=== PATIENT | female | born 1945 | race Caucasian/White ===

== ENCOUNTER → 2020-05-08 15:17 | Outpatient (CLI) | payer MEDICARE, SELFPAY ==
[2020-05-08] MEDS: COVID-19 VACC, Ad26(JANSSEN)/PF 0.5 ML IM (15:40)
== END ==
PROVIDERS: Visit Provider Internal Medicine
DX: Z23 Encounter for immunization (principal)
CPT/HCPCS: 0031A; 91303

== ENCOUNTER 2024-03-26 13:27 | Emergency (ER) | payer OTHER, SELFPAY ==
[2024-03-26] VITALS (22 sets, daily range): BP systolic 160–201; BP diastolic 74–100; PULSE 62–95; RESP 12–28; TEMP 36.7; O2SAT 93–99; BMI 23.8
--- NOTE | 2024-03-26 13:35 | EKG_ITS ---
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
--- NOTE | 2024-03-26 13:35 | DI.RAD.S_ITS ---
PROCEDURE: XR CHEST 1V INDICATIONS: chest pain TECHNIQUE: One view of the chest was acquired. COMPARISON: None. FINDINGS: Surgical changes and devices: None. Lungs and pleura: No dense consolidation or pleural effusions. Mediastinum: Normal heart size Bones and chest wall: Degenerative changes IMPRESSION: No acute radiographic abnormality on this single view study. Dictated by: Jake Alfonso M.D. on 03/26/2024 at 13:58 Approved by: Jake Alfonso M.D. on 03/26/2024 at 13:59
[2024-03-26 14:17] LABS: Add Manual Diff / Slide Review NO; Basophils Absolute Auto 100 /uL (0-100); Basophils Percent Auto 0.9 % (0-2); Eosinophils Absolute Auto 100 /uL (0-450); Eosinophils Percent Auto 1.4 % (2-4); Hematocrit 42.8 % (36-46); Hemoglobin 14.5 g/dL (12.0-16.0); Lymphocytes Absolute Auto 2200 /uL (1100-4500); Lymphocytes Percent Auto 27.7 % (25-40); Mean Corpuscular Hemoglobin 31.7 PG (26-34); Mean Corpuscular Volume 93.3 fL (80-100); Monocytes Absolute Auto 700 /uL (0-900); Monocytes Percent Auto 8.5 % (3-14); Neutrophils Absolute Auto 4900 /uL (1500-7000); Neutrophils Percent Auto 61.5 % (50-75); Platelet Count 190 X10^3/uL (150-400); Red Blood Cell Count 4.59 X10^6/uL (4.0-5.2); Red Cell Distribution Width 12.9 % (11.6-14.8)
[2024-03-26 14:26] LABS: Prothrombin Time 11.4 SECONDS (9.4-12.5)
[2024-03-26 14:29] LABS: PTT Partial Thromboplastin Tim 32 SECONDS (25.1-36.5)
[2024-03-26 14:30] LABS: Alanine Aminotransferase 38 IU/L (<35); Albumin 4.6 g/dL (3.5-5.0); Albumin Globulin Ratio 1.5 (1.0-2.8); Alkaline Phosphatase 72 U/L (38-126); Aspartate Aminotransferase 38 IU/L (14-36); BUN Creatinine Ratio 19.3 (6-22); Bilirubin Total 0.5 mg/dL (0.2-1.3); Blood Urea Nitrogen 17 mg/dL (7-17); Calcium 10.1 mg/dL (8.4-10.2); Carbon Dioxide 25 mmol/L (22-32); Chloride 105 mmol/L (98-107); Creatine Kinase 66 U/L (30-135); Estimated Glomerular Filt Rate > 60 mL/min (>60); Glucose 100 mg/dL (80-110); HEMOLYSIS < 15 (0-50); Lipase 60 U/L (23-300); Potassium 4.1 mmol/L (3.4-5.1); Sodium 138 mmol/L (137-145); Total Protein 7.6 g/dL (6.3-8.2)
[2024-03-26 14:42] LABS: NT-proBNP (BNP-Adult 18+) 338 pg/mL (<450); Troponin I < 0.012 ng/mL (0.01-0.034)
[2024-03-26 16:37] LABS: Troponin I 0.015 ng/mL (0.01-0.034)
[2024-03-26] MEDS: ASPIRIN 81 MG CHEW TAB 324 MG PO (17:07)
--- NOTE | 2024-03-26 18:26 | ED.CHESTPAIN ---
HPI - Chest Pain General Chief Complaint: Chest Pain Stated Complaint: chest pain Time Seen by Provider: 03/26/24 18:26 Source: patient Mode of arrival: Ambulatory Limitations: no limitations and physical limitation History of Present Illness HPI narrative: 79-year-old female has no history of known coronary artery disease, complains of left lower sternal area chest discomfort for the last 72 hours, intermittent chest discomfort for the last month, recent coughing, on direct palpation she believes that it feels a little worse when she pushes on it. No trauma or new activities recalled, besides recent cough possible injury. Denies fevers or chills. Denies shortness of breath. Has cardiac risk factors of hyperlipidemia on atorvastatin, hypertension for which she takes metoprolol, denies history of diabetes, nonsmoker, denies family history. She recalls having cardiac exercise stress test many years ago in [place], no recent cardiac stress testing. No history of blood clots to legs or lungs. She does not take blood thinner medications besides aspirin. Was given additional aspirin here. Related Data Home Medications Medication Instructions Recorded Confirmed atorvastatin PO 11/24/21 11/24/21 metoprolol succinate PO 11/24/21 11/24/21 Previous Rx's Medication Instructions Recorded benzonatate 150 mg capsule 150 mg PO TID PRN cough #30 caps 11/24/21 fluticasone propionate 50 1 spray intranasal BID allergies 11/24/21 mcg/actuation nasal #16 grams spray,suspension (Flonase Allergy Relief) loratadine 10 mg tablet (Claritin) 10 mg PO DAILY allergies #30 tabs 11/24/21 Allergies Allergy/AdvReac Type Severity Reaction Status Date / Time No Known Drug Allergies Allergy Unverified 11/24/21 15:30 Patient History Social History Smoking Status: Never smoker Smoking Status: Never smoker Alcohol type: wine Exam Narrative Exam Narrative: GENERAL: Well-developed patient, in mild distress. HEAD: Atraumatic. Normocephalic. EYES: Pupils equal round and reactive. Extraocular motions intact. No scleral icterus. No injection or drainage. ENT: Nose without bleeding, purulent drainage. Throat without erythema, tonsillar hypertrophy or exudate. Airway patent. NECK: Trachea midline. Non tender CARDIOVASCULAR: Regular rate and rhythm without murmurs, gallops, or rubs. RESPIRATORY: Clear to auscultation. Breath sounds equal bilaterally. No wheezes, rales, or rhonchi. Tenderness to the left lower sternal border without skin changes or bruising, seems to reproduce her discomfort symptoms. GASTROINTESTINAL: Abdomen soft, non-tender, nondistended. EXTREMITIES: No edema or joint tenderness. BACK: Nontender without deformity or crepitance. No flank tenderness. NEURO: AOx3. Motor functions grossly nonfocal SKIN: No rash or erythema of visible areas Initial Vital Signs Initial Vital Signs: Vital Signs Temperature 98.1 F 03/26/24 13:30 Pulse Rate 92 H 03/26/24 13:30 Respiratory Rate 18 03/26/24 13:30 Blood Pressure 198/100 H 03/26/24 13:30 Pulse Oximetry 97 03/26/24 13:30 Oxygen Delivery Method Room Air 03/26/24 13:30 Course Orders Ordered: Discontinued Medications Aspirin (Aspirin 81 Mg Chew Tab) 324 mg PO NOW ONE Stop: 03/26/24 13:36 Last Admin: 03/26/24 17:07 Dose: 324 mg Documented By: Metoprolol Tartrate (Metoprolol Ir 25 Mg Tablet) 25 mg PO NOW ONE Stop: 03/26/24 19:42 Last Admin: 03/26/24 20:09 Dose: 25 mg Documented By: Vital Signs Vital signs: Vital Signs - 8 hr 03/26/24 22:00 03/26/24 22:00 Pulse Rate 62 Blood Pressure 170/77 H Pulse Oximetry 96 MDM - Chest Pain Lab Data Attestation: I reviewed the patient's lab results. Lab results narrative: White blood cell count 8000, hemoglobin 14.5, platelets adequate. Basic metabolic panel unremarkable. Liver functions showed mild transaminitis otherwise normal. Lipase normal. Troponin negative x2 studies. 03/26/24 14:00 03/26/24 14:00 Labs: Lab Results 03/26/24 03/26/24 Range/Units 14:00 15:58 WBC 8.0 (4.5-11.0) X10^3/uL RBC 4.59 (4.0-5.2) X10^6/uL Hgb 14.5 (12.0-16.0) g/dL Hct 42.8 (36-46) % MCV 93.3 (80-100) fL MCH 31.7 (26-34) PG MCHC 34.0 (30-36) % RDW 12.9 (11.6-14.8) % Plt Count 190 (150-400) X10^3/uL Neut % (Auto) 61.5 (50-75) % Lymph % (Auto) 27.7 (25-40) % [place] % (Auto) 8.5 (3-14) % Eos % (Auto) 1.4 L (2-4) % Baso % (Auto) 0.9 (0-2) % Neut # (Auto) 4900 (9877-2337) /uL Lymph # (Auto) 2200 (3522-8916) /uL [place] # (Auto) 700 (0-900) /uL Eos # (Auto) 100 (0-450) /uL Baso # (Auto) 100 (0-100) /uL PT 11.4 (9.4-12.5) SECONDS INR 1.0 (0.9-1.3) APTT 32 (25.1-36.5) SECONDS Sodium 138 (137-145) mmol/L Potassium 4.1 (3.4-5.1) mmol/L Chloride 105 (98-107) mmol/L Carbon Dioxide 25 (22-32) mmol/L BUN 17 (7-17) mg/dL Creatinine 0.88 (0.52-1.04) mg/dL Estimated GFR > 60 (>60) mL/min BUN/Creatinine Ratio 19.3 (6-22) Glucose 100 (80-110) mg/dL Calcium 10.1 (8.4-10.2) mg/dL Magnesium 2.0 (1.6-2.3) mg/dL Total Bilirubin 0.5 (0.2-1.3) mg/dL AST 38 H (14-36) IU/L ALT 38 H (<35) IU/L Alkaline Phosphatase 72 (38-126) U/L Total Creatine Kinase 66 (30-135) U/L Troponin I < 0.012 0.015 (0.01-0.034) ng/mL NT-Pro-B Natriuret Pep 338 (<450) pg/mL Total Protein 7.6 (6.3-8.2) g/dL Albumin 4.6 (3.5-5.0) g/dL Globulin 3.0 (1.7-4.1) g/dL Albumin/Globulin Ratio 1.5 (1.0-2.8) Lipase 60 (23-300) U/L Imaging Data Chest x-ray: Radiologist's Impression: [address] [address] XRay Report Signed Patient: Marisabel Michele MR#: [id number] : 1945 Acct:[id number] Age/Sex: 79 / F Date of Service: 03/26/24 Loc: ED Accession Number: [id number] Procedure: XR chest 1V Ordering Provider: Janie Ascencio D.O. PROCEDURE: XR CHEST 1V INDICATIONS: chest pain TECHNIQUE: One view of the chest was acquired. COMPARISON: None. FINDINGS: Surgical changes and devices: None. Lungs and pleura: No dense consolidation or pleural effusions. Mediastinum: Normal heart size Bones and chest wall: Degenerative changes IMPRESSION: No acute radiographic abnormality on this single view study. Dictated by: Jake Alfonso M.D. on 03/26/2024 at 13:58 Approved by: Jake Alfonso M.D. on 03/26/2024 at 13:59 ECG Data Attestation: I personally reviewed and interpreted this ECG as follows: Interpretation: Normal sinus rhythm with rate of 83, no obvious ST segment elevation or depression changes. T-wave inversion noted in lead 3 but upright in contiguous other inferior leads. [place] 114, QRS 76, QTC 430. MDM Narrative Medical decision making narrative: 79-year-old female with left lower sternal border discomfort for the last month intermittent, more constant over the weekend for the last 72 hours, recent cough, some tenderness on examination left lower sternal border reproduces this discomfort and area of discomfort. Possible chest wall etiology. Screening EKG without obvious ischemic changes. Blood tests pending. Initial troponin negative, repeat interval troponin also negative. Chest x-ray unremarkable, see radiology report. History and physical most suggestive of chest wall etiology of her chest pain, advised [id number] analgesics for now. Further evaluation as outpatient for now. Patient expressed understanding of this plan. Discharged home. Follow up with PCP. Return precautions discussed Discharge Plan Departure Patient Disposition: Home Clinical Impression: Chest wall pain, Hypertension Activity Restrictions/Additional Instructions: Left anterior sternal border area chest discomfort, on palpation there is some reproducibility with discomfort, seems more consistent by exam and history to be chest wall in nature. However evaluation was done to look for underlying other causes of chest discomfort. EKG and serial blood tests were not suggestive of heart attack at this time. Chest x-ray did not show any acute process per Radiology over reading. Aspirin given primarily for chest discomfort in case it happened to be ischemic or cardiac in nature, but this is also a pain reliever as well. Consider taking Tylenol and or Motrin for chest wall discomfort. You had some elevated blood pressure readings, additional dose of your metoprolol was given. Continue taking your metoprolol dosing medication, call the office of your regular doctor tomorrow for further blood pressure management instructions. Further chest pain evaluation as an outpatient advised for now. Return to this/nearest emergency department for any change worsening symptoms or any concerns prior Prescriptions: No Action metoprolol succinate PO atorvastatin PO benzonatate 150 mg capsule 150 mg PO TID PRN (Reason: cough) Qty: 30 0RF loratadine [Claritin] 10 mg tablet 10 mg PO DAILY Qty: 30 0RF fluticasone propionate [Flonase Allergy Relief] 50 mcg/actuation spray,suspension 1 spray intranasal BID Qty: 16 0RF Rx Instructions: administer into each nostril Referrals: Miscellaneous,Doctor, MD [Primary Care Provider] - Stand Alone Forms: Patient Portal/API/Survey
--- NOTE | 2024-03-26 19:04 | PC.NURSE ---
Pt;s BP 199/98. aware.
[2024-03-26] MEDS: METOPROLOL IR 25 MG TABLET PO (20:09)
--- NOTE | 2024-03-26 21:12 | PC.NURSE ---
Repeat BP 184/86. Dr cowart aware.
== END 2024-03-26 22:18 | disposition home or self-care (01) ==
PROVIDERS: Emergency Medicine; Emergency Provider Emergency Medicine
DX: R07.89 Other chest pain (principal); E78.5 Hyperlipidemia, unspecified; I10 Essential (primary) hypertension; Z79.82 Long term (current) use of aspirin
CPT/HCPCS: 71045; 80053; 82550; 83690; 83735; 83880; 84484; 85025; 85610; 85730; 93005; 99284